=== PATIENT | female | born 1980 | race African-American/Black ===

== ENCOUNTER 2024-05-18 11:43 | Emergency (ER) | payer OTHER ==
[2024-05-18 12:19] VITALS: BP 109/73; PULSE 58; RESP 20; TEMP 98.2; BMI 25.0
[2024-05-18] MEDS ORDERED: KETOROLAC TROMETHAMINE 15 MG/ML VIAL ONE (12:41)
[2024-05-18] MEDS ORDERED: LIDOCAINE 5% TOPICAL PATCH ONE (12:41)
[2024-05-18] MEDS: LIDOCAINE 5% TOPICAL PATCH TP ONE (12:41)
[2024-05-18] MEDS: KETOROLAC TROMETHAMINE 15 MG/ML VIAL IM ONE (12:42)
[2024-05-18] MEDS ORDERED: LIDOCAINE PATCH REMOVAL MC ONE (22:00)
== END 2024-05-18 13:06 | disposition home or self-care (01) ==
LOC: FER 11:43
PROC: 3E0133Z Introduction of Anti-inflammatory into Subcutaneous Tissue, Percutaneous Approach (ICD-10-PCS; principal; 2024-05-18)
DX: M54.6 Pain in thoracic spine (principal); X50.1XXA Overexertion from prolonged static or awkward postures, initial encounter
CPT/HCPCS: 99284-25